=== PATIENT | female | born 1950 | race Caucasian/White ===

== ENCOUNTER 2016-05-10 08:59 | Outpatient (CLI) | payer OTHER | END 2016-05-10 09:00 | disposition home or self-care (01) | DX: G35 Multiple sclerosis (principal); R73.01 Impaired fasting glucose; E78.5 Hyperlipidemia, unspecified ==

== ENCOUNTER 2016-07-29 09:00 | Outpatient (CLI) | payer OTHER ==
--- NOTE | 2016-07-30 14:23 | Mammography Report ---
DIGITAL SCREENING MAMMOGRAM: 07/29/2016 CLINICAL INDICATION: A 65-year-old for screening. COMPARISON: 07/2014, 03/2013, 10/2011, 11/2009, 05/2007. TECHNIQUE: Routine CC and MLO projections were obtained of the breasts. FINDINGS: The breasts again demonstrate heterogeneously dense fibroglandular parenchyma bilaterally. Coarse and punctate, typically benign calcifications are present. No suspicious masses, clustered microcalcifications, or regions of architectural distortion are identified. IMPRESSION: BENIGN FINDINGS. RECOMMENDATION: Routine annual screening unless otherwise clinically indicated. BI-RADS category 2, benign findings. STANDARD QUALIFYING STATEMENTS 1. This examination was reviewed with the aid of Computer-Aided Detection (CAD). 2. A negative or benign imaging report should not delay biopsy if clinically suspicious findings are present. Consider surgical consultation if warranted. More than 5% of cancers are not identified by i maging. 3. Dense breasts may obscure an underlying neoplasm. JOB #: [id number] EXT JOB #:[id number]
== END 2016-07-29 09:01 | disposition home or self-care (01) ==
LOC: DI 09:00
PROVIDERS: ATTEND Family Medicine
DX: Z12.31 Encounter for screening mammogram for malignant neoplasm of breast (principal)
CPT/HCPCS: 77067

== ENCOUNTER 2016-09-20 12:25 | Emergency (ER) | payer MEDICARE, OTHER ==
[2016-09-20 12:35] VITALS: BP 153/64
--- NOTE | 2016-09-20 13:21 | ED Physician Documentation ---
PD HPI SKIN - Stated complaint Stated Complaint: HAND/FEET SWELLING - Chief complaint Chief Complaint: General - History obtained from History obtained from: Patient - History of Present Illness Timing - onset: How many days ago (5-6) Timing - duration: Days Timing - details: Gradual onset, Still present Location: Other (edema of hands and feet. Had been doing some crabbing so some increased activity, but does do gardening anyway so not typically inactive. No feeling of swelling to mouth, throat. No orthopnea. No dyspnea, rash, itch.) Associated symptoms: No: Fever, Myalgias, Joint pain Contributing factors: No: Exposed to food (not much salt intake), Recent illness Similar symptoms before: Has not had sx before Recently seen: Not recently seen Review of Systems Constitutional: denies: Fever, Chills Nose: denies: Rhinorrhea / runny nose, Congestion Throat: denies: Sore throat Cardiac: denies: Chest pain / pressure, Palpitations Respiratory: reports: Other (no orthopnea). denies: Dyspnea, Cough, Wheezing GI: denies: Abdominal Pain, Vomiting, Diarrhea : denies: Dysuria, Frequency Skin: denies: Rash PD PAST MEDICAL HISTORY - Past Medical History Cardiovascular: None Respiratory: None Endocrine/Autoimmune: None GI: Colon polyps : None HEENT: None Psych: None Musculoskeletal: Osteoporosis Derm: None - Past Surgical History General: Colonoscopy /[employer]: Tubal ligation - Present Medications Home Medications: Ambulatory Orders Medication Instructions Recorded Confirmed Glatiramer Acetate [Copaxone] 1 syr SUBQ DAILY 09/20/16 09/20/16 - Allergies Allergies/Adverse Reactions: Allergies Allergy/AdvReac Type Severity Reaction Status Date / Time No Known Drug Allergies Allergy Verified 09/20/16 12:35 PD ED PE NORMAL - Vitals Vital signs reviewed: Yes - General General: Alert and oriented X 3, No acute distress, Well developed/nourished - HEENT HEENT: Moist mucous membranes, Pharynx benign - Neck Neck: Supple, no meningeal sign, No adenopathy - Cardiac Cardiac: RRR, No murmur - Respiratory Respiratory: Clear bilaterally - Derm Derm: Normal color, Warm and dry - Extremities Extremities: No calf tenderness / cord, Other (mild edema in both hands and feet. No rash. No tenderness. ) - Neuro Neuro: Alert and oriented X 3, No motor deficit, No sensory deficit, Normal speech Results - Vitals Vitals: Vital Signs - 24 hr 09/20/16 12:32 Temperature 35.9 C L Heart Rate 64 Respiratory 14 Rate Blood Pressure 153/64 H O2 Saturation 100 Oxygen O2 Source Room air - Labs Labs: Laboratory Tests 09/20/16 09/20/16 09/20/16 14:27 14:27 14:27 WBC 7.1 RBC 5.00 Hgb 14.3 Hct 42.6 MCV 85.2 MCH 28.6 MCHC 33.6 RDW 13.5 Plt Count 228 MPV 6.8 L Neut # 5.3 Lymph # 1.4 L [place] # 0.3 Eos # 0.1 Baso # 0.1 Absolute Nucleated RBC 0.00 Nucleated RBCs 0.0 ESR 5 Sodium 138 Potassium 3.7 Chloride 102 Carbon Dioxide 29 Anion Gap 7.0 BUN 11 Creatinine 0.7 Estimated GFR (MDRD) 84 L Glucose 108 H Calcium 9.7 Magnesium 2.2 Total Bilirubin 0.6 AST 18 ALT 22 Alkaline Phosphatase 84 B-Natriuretic Peptide Total Protein 7.8 Albumin 4.5 Globulin 3.3 Albumin/Globulin Ratio 1.4 Lipase 23 09/20/16 14:27 WBC RBC Hgb Hct MCV MCH MCHC RDW Plt Count MPV Neut # Lymph # [place] # Eos # Baso # Absolute Nucleated RBC Nucleated RBCs ESR Sodium Potassium Chloride Carbon Dioxide Anion Gap BUN Creatinine Estimated GFR (MDRD) Glucose Calcium Magnesium Total Bilirubin AST ALT Alkaline Phosphatase B-Natriuretic Peptide 21 Total Protein Albumin Globulin Albumin/Globulin Ratio Lipase PD MEDICAL DECISION MAKING - ED course Complexity details: reviewed results, considered differential (does not seen allaegy. Labs are good with normal CBC and no renal insufficiency. She does not seem fluid overloaded. Consider related to activity or heat perhaps. Her med lists edema as side effect but she has been on it for 3 years without this, so seems unlikely. She can talk with her Neurologist (she says it is easy to talk with his nurse).), d/w patient Departure - Departure Disposition: 01 Home, Self Care Clinical Impression: Generalized edema Condition: Stable Record reviewed to determine appropriate education?: Yes Instructions: ED Edema Legs Bilateral Follow-Up: Dale Durham DO [Primary Care Provider] - Comments: Your basic blood tests are okay and it does not look like fluid overload, congestive failure, allergic reaction. It may relate to heat and activity. At this point see how you do over the next several days to a week. Follow-up with your primary care if not improved. You could call your neurologists office to ask if he thinks it may be related to the MS medication, though it would seem unusual to develop this after being on it for 3 years. Discharge Date/Time: 09/20/16 15:33
[2016-09-20 14:42] LABS: BASOPHILS # (AUTO) 0.1 10^3/uL (0.0-0.1); EOSINOPHILS # (AUTO) 0.1 10^3/uL (0.0-0.7); EOSINOPHILS % (AUTO) 2.1 %; HCT - HEMATOCRIT 42.6 % (37.0-47.0); HGB - HEMOGLOBIN 14.3 g/dL (12.0-16.0); LYMPHOCYTES # (AUTO) 1.4 10^3/uL (1.5-3.5); MEAN CORPUSCULAR HEMOGLOBIN 28.6 pg (27.0-31.0); MEAN CORPUSCULAR HGB CONC 33.6 g/dL (32.0-36.0); MEAN CORPUSCULAR VOLUME 85.2 fL (81.0-99.0); MEAN PLATELET VOLUME 6.8 fL (7.9-10.8); MONOCYTES # (AUTO) 0.3 10^3/uL (0.0-1.0); MONOCYTES % (AUTO) 4.1 %; NEUTROPHILS # (AUTO) 5.3 10^3/uL (1.5-6.6); NEUTROPHILS % (AUTO) 73.8 %; RED CELL DISTRIBUTION WIDTH 13.5 % (12.0-15.0); UNCORRECTED WHITE BLOOD COUNT 7.1 x10^3/uL; WHITE BLOOD COUNT 7.1 x10^3/uL (4.8-10.8)
[2016-09-20 14:54] LABS: ALBUMIN/GLOBULIN RATIO 1.4 (1.0-2.2); BILIRUBIN,TOTAL 0.6 mg/dL (0.2-1.0); CALCIUM 9.7 mg/dL (8.5-10.3); CREATININE 0.7 mg/dL (0.4-1.0); MAGNESIUM 2.2 mg/dL (1.7-2.8); POTASSIUM 3.7 mmol/L (3.5-5.0); TOTAL PROTEIN 7.8 g/dL (6.7-8.2)
== END 2016-09-20 15:33 | disposition home or self-care (01) ==
LOC: ED 12:25
DX: R60.1 Generalized edema (principal)
CPT/HCPCS: 36415; 80053; 83690; 83735; 83880; 85025; 85651; 99282; 99283

== ENCOUNTER 2016-09-30 07:52 | Outpatient (CLI) | payer MEDICARE ==
--- NOTE | 2016-09-30 11:29 | MRI Report ---
EXAM: MRI CERVICAL SPINE WITHOUT CONTRAST EXAM DATE: 09/30/2016 08:33 AM. CLINICAL HISTORY: MS. Follow-up. COMPARISONS: Prior MRI 04/15/2014. TECHNIQUE: Multiplanar, multisequence T1-weighted and fluid-sensitive sequences of the cervical spine without contrast. Other: None. FINDINGS: Neurologic Structures: 1. There are foci of high T2 signal at the craniocervical junction, mainly involving the right side o f the cord, unchanged since the prior study. 2. Moderately increased T2 signal in the posterior and central cord commencing at the level of the C2 -C3 disk extends to the level of the C4 vertebral body, unchanged since the prior study. 3. Central and left paracentral high T2 signal visible from the C5-C6 disk to the C7-T1 disk, unchang ed since the prior study. There is no cord atrophy. Alignment: There is a 2 mm grade 1 retrolisthesis at C5-C6. Bone Marrow: No gross fractures or bone lesions. No marrow edema. Interspace Levels/Facets: C1-C2: Unremarkable. C2-C3: The right C2-C3 facet joint is fused. There is mild right foraminal narrowing. Osteophytes con tact the right C3 nerve root within the foramen. The left C3 nerve root exits without compromise. C3-C4: There is moderate left and mild right facet joint osteoarthritis causing mild left foraminal n arrowing. C4-C5: There is moderate right and mild left facet joint osteoarthritis causing mild right foraminal narrowing. C5-C6: There is a broad-based posterior disk/osteophyte complex and mild bilateral facet joint osteoa rthritis causing mild canal narrowing and mild right foraminal narrowing. C6-C7: There is a broad-based posterior disk/osteophyte complex with mild bilateral facet joint osteo arthritis causing mild canal narrowing. There is mild bilateral foraminal narrowing. C7-T1: Unremarkable. Musculature: Normal. No edema or fatty atrophy. Other: The paravertebral and prevertebral soft tissues are normal. IMPRESSION: 1. The distribution of the high T2 foci in the visible cord has not altered since the prior study. Th e findings are consistent with MS. There is no cord atrophy. 2. Mild spondylotic change not significantly altered since the prior study. [facility] Referring Provider Line: [phone] SITE ID: [id number]
== END 2016-09-30 07:53 | disposition home or self-care (01) ==
LOC: DI 07:52
PROVIDERS: ATTEND Psychiatry & Neurology Neurology
DX: G35 Multiple sclerosis (principal)
CPT/HCPCS: 72141

== ENCOUNTER 2016-10-04 08:50 | Outpatient (CLI) | payer MEDICARE ==
[2016-10-04] MEDS ORDERED: GADOBUTROL 7.5 MMOL/7.5 ML VIAL IVP ONE (09:13)
--- NOTE | 2016-10-04 14:50 | MRI Report ---
MRI BRAIN WITHOUT AND WITH CONTRAST CLINICAL HISTORY: 65-year-old female with multiple sclerosis. Please assess for interval change in le maurilio load. COMPARISON: 04/03/2014 TECHNIQUE: 1. Sagittal T1 3-D and T2 FLAIR. 2. Axial T1, FLAIR, T2 and DWI. 3. 6 mL of IV Gadavist. T1-weighted axial sequences. FINDINGS: Ventricular size is normal and stable. Multiple, T2 hyperintense/T1 hypointense lesions are again demonstrated, scattered throughout the per iventricular, deep, and subcortical white matter in the supratentorial brain. There is a tiny T2 hype rintense focus in white matter at left temporoparietal junction (see image #5 of series 701) that is not identified on the previous study and appears to represent a new finding. It measures about a mill imeter in diameter. No other new T2 hyperintense supratentorial white matter focus is demonstrated. A small T2 hyperintensity is again demonstrated in the mid body of the corpus callosum on the right, u nchanged. No new corpus callosal pathology is identified. Subtle focus of mildly increased T2 signal again demonstrated in deep white matter left cerebellum. I n addition, there is a small focus of hyperintensity in white matter of the upper, anterior, and diane al right cerebellum, stable. No new posterior fossa lesion is identified. The burden of T1 hypointense white matter disease is essentially stable. No abnormal diffusion restriction is demonstrated. No enhancing lesion is identified on postcontrast sequences. Limited assessment of the orbits reveals no gross pathology. The paranasal sinuses are essentially cl ear. No significant mastoid or middle ear effusion is demonstrated. IMPRESSION: 1. A tiny (roughly 1 mm diameter) T2 hyperintense focus is identified in the white matter at the left temporoparietal junction. No definite corresponding abnormality is seen on the prior study suggestin g that this probably represents a new white matter lesion. However, the lesion is so small that nonid entification on previous study could simply relate to slice selection. 2. Otherwise, stable appearance of previously demonstrated multifocal white matter disease. No other potential new demyelinating plaque is identified. 3. No enhancing lesion is demonstrated. Referring Provider Line: [phone] SITE ID: [id number]
== END 2016-10-04 08:51 | disposition home or self-care (01) ==
LOC: DI 08:50
PROVIDERS: ATTEND Psychiatry & Neurology Neurology
DX: G35 Multiple sclerosis (principal); R90.82 White matter disease, unspecified
CPT/HCPCS: 70553; A9585

== ENCOUNTER 2017-10-12 07:40 | Outpatient (CLI) | payer MEDICARE ==
[2017-10-12] MEDS ORDERED: GADOBUTROL 7.5 MMOL/7.5 ML VIAL ONE (08:23)
[2017-10-12] MEDS: GADOBUTROL 7.5 MMOL/7.5 ML VIAL IVP ONE (09:04)
[2017-10-12 09:54] LABS: BASOPHILS # (AUTO) 0.1 10^3/uL (0.0-0.1); BASOPHILS % (AUTO) 1.1 %; EOSINOPHILS # (AUTO) 0.1 10^3/uL (0.0-0.7); EOSINOPHILS % (AUTO) 1.9 %; HGB - HEMOGLOBIN 14.6 g/dL (12.0-16.0); LYMPHOCYTES # (AUTO) 1.2 10^3/uL (1.5-3.5); LYMPHOCYTES % (AUTO) 20.6 %; MEAN CORPUSCULAR HEMOGLOBIN 28.8 pg (27.0-31.0); MEAN CORPUSCULAR HGB CONC 33.8 g/dL (32.0-36.0); MEAN CORPUSCULAR VOLUME 85.2 fL (81.0-99.0); MEAN PLATELET VOLUME 6.8 fL (7.9-10.8); MONOCYTES # (AUTO) 0.3 10^3/uL (0.0-1.0); MONOCYTES % (AUTO) 4.3 %; NEUTROPHILS # (AUTO) 4.3 10^3/uL (1.5-6.6); NEUTROPHILS % (AUTO) 72.1 %; PLT - PLATELET COUNT 231 10^3/uL (130-450); RED BLOOD COUNT 5.08 10^6/uL (4.20-5.40); RED CELL DISTRIBUTION WIDTH 13.5 % (12.0-15.0)
[2017-10-12 10:08] LABS: ALBUMIN 4.6 g/dL (3.2-5.5); ALBUMIN/GLOBULIN RATIO 1.5 (1.0-2.2); CALCIUM 9.5 mg/dL (8.5-10.3); CREATININE 0.6 mg/dL (0.4-1.0); TOTAL PROTEIN 7.7 g/dL (6.7-8.2)
[2017-10-12 10:47] LABS: THYROID STIMULATING HORMONE 0.96 uIU/mL (0.34-5.60)
--- NOTE | 2017-10-12 13:25 | MRI Report ---
Procedure Date: 10/12/2017 Accession Number: [id number] / [id number] Procedure: MRI - Cervical Spine W/O CPT Code: FULL RESULT: EXAM: MRI CERVICAL SPINE WITHOUT CONTRAST EXAM DATE: 10/12/2017 08:35 AM. CLINICAL HISTORY: Multiple sclerosis follow-up. COMPARISONS: Cervical spine without 09/30/2016 8:06 AM. TECHNIQUE: Multiplanar, multisequence T1-weighted and fluid-sensitive sequences of the cervical spine without contrast. Other: None. FINDINGS: Neurologic Structures: Stable appearing abnormal patchy and nodular T2 hyperintensity of the inferior medulla and the cervical medullary junction. Again seen are multiple regions of nodular, patchy and confluent multilevel abnormal T2 hyperintensity throughout the cervical spinal cord in a pattern consistent with the given diagnosis of multiple sclerosis. There is no evidence for cervical spinal cord interval lesion burden progression. Dominant regions of T2 hyperintensity are again seen in the cervical cord at C1-C2, from the mid C3 level inferiorly to the top of C4 and from the C5-C6 level inferiorly to the upper T1 level. No evidence for acute focal cord swelling/expansion or edema. Alignment: No change of alignment. Bone Marrow: There is now prominent marrow edema on both sides of the arthritic disk space at C6-C7. These progressive findings are likely degenerative. Infection and tumor are less likely. Mild or prominent degenerative endplate signal changes also on the right at C5-C6. Interspace Levels/Facets: C1-C2: Stable, no stenosis. C2-C3: Stable, no stenosis. C3-C4: Stable facet arthropathy on the left. Stable mild left foraminal narrowing. C4-C5: Stable degenerative changes including prominent facet arthropathy on the right and very small midline posterior disk protrusion. No evidence for high-grade or progressive stenosis. C5-C6: Mildly progressive degenerative disk disease. Stable mild facet arthropathy. Patent central canal and left foramen. Stable appearing moderately prominent degenerative foraminal stenosis on the right from intraforaminal asymmetric disk osteophyte complex protrusion and facet arthropathy. C6-C7: Progressive degenerative disk disease. Marginal spurring and broad-based disk bulge. Minimal central stenosis, no cord impingement. Stable minimal foraminal narrowing. C7-T1: Unremarkable. T1-T2: Stable small midline posterior disk extrusion, no cord impingement. Musculature: No acute abnormality. Other: Stable probably incidental left intraforaminal perineural root sleeve cyst on the left at T1-T2. IMPRESSION: 1. Extensive but stable abnormal T2 hyperintensity in the lower brainstem and cervical spinal cord consistent with nonprogressive demyelinating disease. 2. Progressive degenerative disk disease at the C6-C7 level and to a lesser degree on the right at C5-C6. 3. No evidence for significant progression of degenerative cervical stenosis. [facility]
--- NOTE | 2017-10-12 15:05 | MRI Report ---
Procedure Date: 10/12/2017 Accession Number: [id number] / [id number] Procedure: MRI - Brain W/WO CPT Code: FULL RESULT: EXAM: MRI BRAIN WITHOUT AND WITH CONTRAST EXAM DATE: 10/12/2017 09:21 AM. CLINICAL HISTORY: Multiple sclerosis, follow-up. COMPARISON: Brain with and without 10/04/2016 9:00 AM. TECHNIQUE: Multiplanar, multisequence T1-weighted and fluid-sensitive MR sequences of the brain were performed. Sequences optimized for White matter evaluation. Other: None. IV Contrast: 6 mL Gadavist. FINDINGS: Brain Volume: Stable, within normal limits for age. Parenchyma: No acute infarct, hemorrhage or evidence for developing enhancing intracranial tumor mass. Again seen are multiple foci of patchy, nodular and plaque-like T2 hyperintensities in both cerebral hemispheres involving deep and periventricular white matter. Less prominent T2 hyperintense signal changes in the cerebellar hemispheres. Compared to the prior study there is no evidence for interval T1 hypointense/T2 hyperintense lesion burden progression. No white matter enhancement is seen to suggest disease activity. Ventricles/Cisterns: No hydrocephalus. No abnormal extra-axial fluid collection or hemorrhage. Sella Turcica: The pituitary gland, cavernous sinuses, suprasellar cistern and optic chiasm are unremarkable. IAC: Symmetric and unremarkable. Vasculature: Normal signal flow void is seen in the major arterial structures at the skull base. The dural sinuses are patent and enhance normally. Sinuses: No acute sinus disease. IMPRESSION: 1. Stable white matter disease consistent with the given diagnosis of MS, no evidence for interval lesion burden progression. 2. No abnormal white matter enhancement. [facility]
== END 2017-10-12 07:41 | disposition home or self-care (01) ==
LOC: DI 07:40
PROVIDERS: ATTEND Psychiatry & Neurology Neurology
DX: G35 Multiple sclerosis (principal); M50.222 Other cervical disc displacement at C5-C6 level; M47.892 Other spondylosis, cervical region; M50.322 Other cervical disc degeneration at C5-C6 level
CPT/HCPCS: 36415; 70553; 72141; 80053; 81599; 82306; 82607; 84443; 85025; A9585

== ENCOUNTER 2018-07-20 08:11 | Outpatient (CLI) | payer MEDICARE ==
--- NOTE | 2018-07-20 09:40 | Mammography Report ---
Reason: SCREENING MAMMO Procedure Date: 07/20/2018 Accession Number: [id number] / [id number] Procedure: MARK - Screening Mammo w/Neto CPT Code: FULL RESULT: EXAM: Screening Mammo w/Neto DATE: 07/20/2018 8:45 AM CLINICAL HISTORY: Screening encounter. No reported risk factors. TECHNIQUE: (B) - Bilateral CC and MLO views were obtained. A right laterally exaggerated view is obtained. COMPARISON: 07/29/2016 through 11/22/2011. PARENCHYMAL PATTERN: (A) - The breast(s) demonstrate(s) scattered fibroglandular densities. FINDINGS: There are no suspicious masses, calcifications, or areas of distortion. IMPRESSION: Negative examination. BI-RADS category 1. RECOMMENDATION: (ANNUAL) - Recommend routine annual screening mammography. BI-RADS CATEGORY: (1) - Negative. STANDARD QUALIFYING STATEMENTS: 1. This examination was not reviewed with the aid of Computer-Aided Detection (CAD). 2. A negative or benign imaging report should not preclude biopsy if clinically suspicious findings are present. 3. Dense breasts may obscure an underlying neoplasm. 4. This examination was reviewed with the aid of 3D breast imaging (tomosynthesis).
== END 2018-07-20 08:12 | disposition home or self-care (01) ==
LOC: DI 08:11
DX: Z12.31 Encounter for screening mammogram for malignant neoplasm of breast (principal)
CPT/HCPCS: 77063; 77067

== ENCOUNTER 2018-12-02 09:00 | Outpatient (CLI) | payer MEDICARE | END 2018-12-02 09:01 | disposition home or self-care (01) | LOC: DI 09:00 | PROVIDERS: ATTEND Psychiatry & Neurology Neurology | DX: G35 Multiple sclerosis (principal); Z53.9 Procedure and treatment not carried out, unspecified reason ==

== ENCOUNTER 2018-12-13 07:41 | Outpatient (CLI) | payer MEDICARE ==
[2018-12-13 08:23] LABS: CREATININE 0.8 mg/dL (0.4-1.0)
== END 2018-12-13 07:42 | disposition home or self-care (01) ==
LOC: LAB 07:41
PROVIDERS: ATTEND Psychiatry & Neurology Neurology
DX: G35 Multiple sclerosis (principal)
CPT/HCPCS: 36415; 82565

== ENCOUNTER 2018-12-16 07:19 | Outpatient (CLI) | payer MEDICARE ==
[2018-12-16] MEDS ORDERED: GADOBUTROL 7.5 MMOL/7.5 ML VIAL ONE (08:34)
[2018-12-16] MEDS ORDERED: GADOBUTROL 7.5 MMOL/7.5 ML VIAL IVP ONE (09:10)
--- NOTE | 2018-12-16 13:45 | MRI Report ---
Reason: MULTIPLE SCLEROSIS Procedure Date: 12/16/2018 Accession Number: [id number] / [id number] Procedure: MRI - Cervical Spine W/O CPT Code: FULL RESULT: EXAM: MRI CERVICAL SPINE WITHOUT CONTRAST EXAM DATE: 12/16/2018 07:54 AM. CLINICAL HISTORY: 68-year-old with history of multiple sclerosis. Evaluate for cervical pathology or interval change. COMPARISONS: CERVICAL SPINE W/O 10/12/2017 8:05 AM. TECHNIQUE: Multiplanar, multisequence T1-weighted and fluid-sensitive sequences of the cervical spine without contrast. Other: None. FINDINGS: Neurologic Structures: There are T2 hyperintense lesions seen within the cervical cord includin. Right dorsolateral cord at C1-C2 measuring up to 5 mm (series 701, image 26) stable. 2. Right dorsolateral cord at C2-C3 measuring up to 3 mm (series 701, image 23) stable. 3. Right dorsal paramedian cord at C3-C4 measuring up to 3 mm (series 701, image 19) stable. 4. Left dorsolateral cord at C5-C6 measuring up to 2 mm (series 701, image 12) stable. 5. Left dorsolateral cord at C6 measuring up to 4 mm (series 701, image 10) stable. 6. Midline dorsal cord at C7 measuring up to 3 mm (series 701, image 6) stable. No definite new or enlarging T2 hyperintense lesions seen. Lack of contrast administration technically limits evaluation for active demyelination. Alignment: No scoliosis or spondylolisthesis. Bone Marrow: No gross fractures or bone lesions. No marrow edema. Interspace Levels/Facets: Mild endplate degenerative change with mild loss of disk height and disk desiccation. Scattered Schmorl's nodes seen. C1-C2: Arthritic changes seen between the dens and anterior arch of C1. C2-C3: Small central disk osteophyte complex. Right arthritic facet disease. No spinal canal stenosis. No definite neural foraminal narrowing. C3-C4: Small central disk osteophyte complex. Bilateral uncovertebral and arthritic facet disease, greater on the left. Mild spinal canal stenosis. Moderate left neural foraminal narrowing. C4-C5: Small broad-based disk osteophyte complex. Bilateral uncovertebral osteophyte and arthritic facet disease. Mild spinal canal stenosis. Mild right and mild to moderate left neural foraminal narrowing. C5-C6: Small broad-based disk osteophyte complex eccentric to the right. Bilateral uncovertebral osteophyte and arthritic facet disease, greater on the right. Mild spinal canal stenosis and effacement of the right lateral recess. Severe right and mild left neural foraminal narrowing. C6-C7: Small broad-based disk osteophyte complex. Bilateral uncovertebral osteophyte and arthritic facet disease. Mild spinal canal stenosis. Mild bilateral neural foraminal narrowing. C7-T1: Bilateral arthritic facet disease. No definite spinal canal stenosis. No definite neural foraminal narrowing. Incidentally seen within the left T1-T2 neural foramina is a moderate sized left neural foraminal perineural root sleeve cyst. Musculature: Mild fatty atrophy of the posterior spinal musculature. Other: The paravertebral and prevertebral soft tissues are normal. IMPRESSION: 1. There are T2 hyperintense lesions seen throughout the cervical cord that appear similar in size and distribution to MR cervical spine 10/12/2018 and can be compatible with patient's history of demyelinating disease. When accounting for differences in technique there is no definite new or enlarging T2 hyperintense lesion seen. Lack of contrast administration technically limits evaluation for active demyelination. 2. Multilevel degenerative changes that appear similar to MR cervical spine 09/30/2016, as detailed above. [facility]
--- NOTE | 2018-12-16 14:13 | MRI Report ---
Reason: MULTIPLE SCLEROSIS Procedure Date: 12/16/2018 Accession Number: [id number] / [id number] Procedure: MRI - Brain W/WO CPT Code: FULL RESULT: EXAM: MRI BRAIN WITHOUT AND WITH CONTRAST EXAM DATE: 12/16/2018 09:07 AM. CLINICAL HISTORY: 68-year-old with history of multiple sclerosis. Evaluate for intracranial pathology or interval change. COMPARISON: BRAIN W/WO 10/12/2017 8:37 AM. TECHNIQUE: Multiplanar, multisequence T1-weighted and fluid-sensitive MR sequences of the brain were performed before and after administration of intravenous contrast. Sequences optimized for demyelinating disease evaluation. Other: None. IV Contrast: 6 mL Gadavist. FINDINGS: Brain Volume: Normal for age. Parenchyma: No acute parenchymal hemorrhage, mass, or midline shift seen. There is mild to moderate bilateral areas of juxtacortical, subcortical, and periventricular T2/FLAIR signal hyperintensity seen that appears similar in size and distribution to MR brain 10/12/2018. There are T2 hypointense lesion seen involving the corpus callosum, brainstem, and cerebellum that appears similar to prior study. Compared to MR brain there is no definite new or enlarging T2 hypointense lesion seen. No areas of restricted diffusion seen to just acute infarct. No abnormal areas of parenchymal susceptibility artifact. No abnormal enhancement. Ventricles/Cisterns: No hydrocephalus. No abnormal extra-axial fluid collection or hemorrhage. Orbits: Symmetric and unremarkable. Sella Turcica: The pituitary gland, cavernous sinuses, suprasellar cistern and optic chiasm are unremarkable. IAC: Symmetric and unremarkable. Vasculature: Normal signal flow void is seen in the major arterial structures at the skull base. The dural sinuses are patent and enhance normally. Sinuses: No acute sinus disease. Bones: No focal pathologic appearing marrow signal changes. Other: None. IMPRESSION: 1. Mild to moderate white matter changes seen that are similar in size and distribution to MR brain 10/12/2017 and can be compatible with patient's history of demyelinating disease. Compared to prior study there is no definite new or enlarging T2 hyperintense lesion seen. No abnormal postcontrast enhancement seen to suggest active demyelinating demyelination. 2. No acute infarct, acute intracranial hemorrhage, mass, hydrocephalus, or midline shift. No abnormal postcontrast enhancement. [facility]
== END 2018-12-16 07:20 | disposition home or self-care (01) ==
LOC: DI 07:19
PROVIDERS: ATTEND Psychiatry & Neurology Neurology
DX: G35 Multiple sclerosis (principal); M47.813 Spondylosis without myelopathy or radiculopathy, cervicothoracic region
CPT/HCPCS: 70553; 72141; A9585

== ENCOUNTER 2020-12-25 08:09 | Outpatient (CLI) | payer MEDICARE ==
--- NOTE | 2020-12-26 09:12 | Mammography Report ---
BILATERAL DIGITAL SCREENING MAMMOGRAM 3D/2D: 12/25/2020 CLINICAL: Routine screening. Comparison is made to exams dated: 07/20/2018 mammogram, 07/29/2016 mammogram, 08/13/2014 mammogram, and 04/23/2013 mammogram - [facility]. The tissue of both breasts is heterogeneously d ense. This may lower the sensitivity of mammography. No significant masses, calcifications, or other findings are seen in either breast. There has been no significant interval change. IMPRESSION: NEGATIVE There is no mammographic evidence of malignancy. A 1 year screening mammogram is recommended. This exam was interpreted at Station ID: [id number]. NOTE: For mammograms, a report in lay terms will be sent to the patient. Approximately 15% of breast malignancies will not be visualized mammographically. In the management of a palpable breast mass, a negative mammogram must not discourage biopsy of a clinically suspicious lesion. Electronically Signed By: Berry Cornelius M.D. slc/penrad:12/25/2020 09:53:26 ACR BI-RADS Category 1: Negative 3341F PARENCHYMAL PATTERN: (D) - The breast(s) demonstrate(s) heterogeneously dense fibroglandular chet randall. BI-RADS CATEGORY: (1) - 1 RECOMMENDATION: (ANNUAL) - Recommend routine annual screening mammography. [id number] 1 year screening LATERALITY: (B)
== END 2020-12-25 08:10 | disposition home or self-care (01) ==
LOC: DI 08:09
DX: Z12.31 Encounter for screening mammogram for malignant neoplasm of breast (principal)

== ENCOUNTER 2021-03-21 08:04 | Outpatient (CLI) | payer MEDICARE ==
[2021-03-21 08:31] LABS: BASOPHILS # (AUTO) 0.1 10^3/uL (0.0-0.1); BASOPHILS % (AUTO) 1.3 %; EOSINOPHILS # (AUTO) 0.1 10^3/uL (0.0-0.7); EOSINOPHILS % (AUTO) 2.4 %; HCT - HEMATOCRIT 40.4 % (37.0-47.0); HGB - HEMOGLOBIN 13.4 g/dL (12.0-16.0); LYMPHOCYTES # (AUTO) 1.2 10^3/uL (1.5-3.5); LYMPHOCYTES % (AUTO) 26.3 %; MEAN CORPUSCULAR HEMOGLOBIN 28.7 pg (27.0-31.0); MEAN CORPUSCULAR HGB CONC 33.2 g/dL (32.0-36.0); MEAN CORPUSCULAR VOLUME 86.5 fL (81.0-99.0); MEAN PLATELET VOLUME 8.6 fL (7.9-10.8); MONOCYTES # (AUTO) 0.3 10^3/uL (0.0-1.0); MONOCYTES % (AUTO) 6.4 %; NEUTROPHILS % (AUTO) 63.6 %; PLT - PLATELET COUNT 220 10^3/uL (130-450); RED BLOOD COUNT 4.67 10^6/uL (4.20-5.40); RED CELL DISTRIBUTION WIDTH 13.2 % (12.0-15.0); WHITE BLOOD COUNT 4.7 x10^3/uL (4.8-10.8)
[2021-03-21 08:51] LABS: BILIRUBIN,URINE NEGATIVE (NEGATIVE); GLUCOSE, URINE (UA) NEGATIVE (NEGATIVE); KETONES,URINE (UA) NEGATIVE (NEGATIVE); LEUKOCYTE ESTERASE, URINE TRACE (NEGATIVE); NITRITE,URINE NEGATIVE (NEGATIVE); OCCULT BLOOD,URINE NEGATIVE (NEGATIVE); PH,URINE 7.5 PH (5.0-7.5); PROTEIN,URINE NEGATIVE (NEGATIVE); UROBILINOGEN,URINE 0.2 (NORMAL) E.U./dL (NORMAL)
[2021-03-21 08:52] LABS: CLARITY,URINE CLEAR (CLEAR)
[2021-03-21 08:54] LABS: ALBUMIN 4.2 g/dL (3.2-5.5); ALBUMIN/GLOBULIN RATIO 1.7 (1.0-2.2); ALKALINE PHOSPHATASE 73 IU/L (42-121); ALT ALANINE AMINOTRANSFERASE 15 IU/L (10-60); AST ASPARTATE AMINOTRANSFERASE 17 IU/L (10-42); BILIRUBIN,TOTAL 0.9 mg/dL (0.2-1.0); BUN - BLOOD UREA NITROGEN 12 mg/dL (6-20); CALCIUM 9.2 mg/dL (8.5-10.3); CARBON DIOXIDE - CO2 26 mmol/L (21-32); CHLORIDE 97 mmol/L (101-111); CHOL/HDL RATIO 3.2 (<4.4); CHOLESTEROL 253 mg/dL; CREATININE 0.8 mg/dL (0.4-1.0); GFR - MDRD 71 (>89); GLUCOSE 112 mg/dL (70-100); HDL CHOLESTEROL 79 mg/dL; LDL CHOLESTEROL,CALCULATED 160 mg/dL; SODIUM 131 mmol/L (135-145); TOTAL PROTEIN 6.7 g/dL (6.7-8.2); TRIGLYCERIDES 72 mg/dL; VLDL CHOLESTEROL 14 mg/dL
[2021-03-21 08:57] LABS: BACTERIA,URINE Few /HPF (None Seen); RBC,URINE 0-5 /HPF (0-5); SQUAMOUS EPITHELIAL CELL,UR FEW Squamous (<= Few); WBC,URINE 0-3 /HPF (0-5)
[2021-03-21 09:06] LABS: THYROID STIMULATING HORMONE 1.19 uIU/mL (0.34-5.60)
[2021-03-21 09:08] LABS: FREE T4 (FREE THYROXINE) 0.98 ng/dL (0.58-1.64)
[2021-03-21 09:13] LABS: CREATININE,URINE 60.6 mg/dL; MICROALBUM/CREATININE RATIO,UR 19.8 ug/mg (<30.0); MICROALBUMIN,URINE 1.2 mg/dL (0-300.0)
[2021-03-21 11:51] LABS: ESTIMATED AVERAGE GLUCOSE 111 mg/dL (70-100); HEMOGLOBIN A1c% 5.5 % (4.27-6.07)
== END 2021-03-21 08:05 | disposition home or self-care (01) ==
LOC: LAB 08:04
PROVIDERS: ATTEND Nurse Practitioner
DX: R53.83 Other fatigue (principal); E78.5 Hyperlipidemia, unspecified; G35 Multiple sclerosis; Z13.1 Encounter for screening for diabetes mellitus
CPT/HCPCS: 36415; 80053; 80061; 81001; 82043; 82570; 82607; 83036; 83721; 84439; 84443; 85025; 87086

== ENCOUNTER 2021-06-25 09:50 | Outpatient (CLI) | payer MEDICARE ==
[2021-06-25 10:22] LABS: CREATININE 0.7 mg/dL (0.4-1.0)
== END 2021-06-25 09:51 | disposition home or self-care (01) ==
LOC: LAB 09:50
PROVIDERS: ATTEND Psychiatry & Neurology Neurology
DX: G35 Multiple sclerosis (principal)
CPT/HCPCS: 36415; 82565

== ENCOUNTER 2021-07-02 10:01 | Outpatient (CLI) | payer MEDICARE ==
[2021-07-02] MEDS ORDERED: GADOBUTROL 7.5 MMOL/7.5 ML VIAL ONE (10:07)
--- NOTE | 2021-07-02 16:23 | MRI Report ---
PROCEDURE: Cervical Spine W/WO INDICATIONS: MULTIPLE SCLEROSIS CONTRAST: IV CONTRAST: Gadavist ml: 5.2 TECHNIQUE: Noncontrast sagittal T1 spin echo and T2 fast spin echo, sagittal STIR, sagittal PD fast spin echo, f oraminal oblique sagittal T2 fast spin echo, axial gradient echo or T2 fast spin echo through the cer vical spine. After the administration of contrast, sagittal and axial T1 spin echo with fat saturati on through the cervical spine. COMPARISON: 12/16/2018, 10/12/2017 and 09/30/2016. FINDINGS: Image quality: Degraded by patient motion artifact. Alignment and curvature: There is normal bony alignment. Marrow: Marrow demonstrates normal overall signal. Spinal cord: Visualized spinal cord is normal in size.Multiple foci of increased T2 signal noted in the cervical spine at the level of the C2, C3, C5-6 and C7 vertebral bodies compatible reported histo ry of multiple sclerosis. Multiple sclerosis plaques are unchanged in size and contour compared to e 12/16/2018, 10/12/2017 and 09/30/2016. No new multiple sclerosis plaques identified. No suspicious int ramedullary enhancement. No cerebellar tonsillar herniation. Paraspinous soft tissues: No paravertebral masses or suspicious enhancement. Multilevel degenerative disc changes are redemonstrated. Multilevel facet and uncovertebral arthropat hy are redemonstrated. No severe central canal narrowing. Severe right C5-C6 neural foraminal narrowi ng with compression of the exiting right C6 nerve root. IMPRESSION: 1. Multiple foci of increased T2 signal involving the cervical spinal cord compatible with reported h istory of multiple sclerosis. Multiple sclerosis plaques are stable in size, contour and number jose a red to prior examination. 2. No suspicious postcontrast enhancement. 3. Multilevel degenerative disc disease. 4. Multilevel facet and uncovertebral arthropathy. 5. No severe central canal narrowing. 6. Severe right C5-C6 neural foraminal narrowing with compression of the exiting right C6 nerve root. Reviewed by: Indigo Pimentel MD, PhD on 07/02/2021 4:22 PM PDT Approved by: Indigo Pimentel MD, PhD on 07/02/2021 4:22 PM PDT Station ID: [id number]
--- NOTE | 2021-07-02 18:24 | MRI Report ---
PROCEDURE: Brain W/WO INDICATIONS: MULTIPLE SCLEROSIS CONTRAST: IV CONTRAST: Gadavist ml: 5.2 TECHNIQUE: Noncontrast axial T1 spin echo, axial T2 fast spin echo, sagittal and axial FLAIR, coronal T2 fast sp in echo, axial gradient echo, axial diffusion and ADC through the brain. After the administration of contrast, axial and coronal T1 spin echo with fat saturation through the brain. COMPARISON: MRI brain 12/16/2018 FINDINGS: Image quality: Excellent. CSF spaces: Basal cisterns are patent. No extra-axial fluid collections. Ventricles are normal in size and shape. Brain: No midline shift. No intracranial bleeds or masses. No abnormal intracranial enhancement. There is cerebral volume loss for age. There is periventricular white matter chronic small vessel is chemic change. The brainstem appears normal. Diffusion-weighted images demonstrate no acute ischemi c insults. No chronic ischemic insults. Normal intravascular flow voids are present. As identified on prior exam, periventricular and subcortical white matter hyperintensities are present. They are s table in size and number compared to prior exam. Skull and face: Calvarial marrow is normal in signal. Orbits appear normal. Sinuses: Sinuses and mastoids appear clear. IMPRESSION: Stable appearance of multifocal T2/FLAIR hyperintensities within the periventricular and subcortical white matter. Overall appearance remains consistent with demyelinating disease without interval progr ession. Reviewed by: Li Duarte MD on 07/02/2021 5:23 PM THUY Approved by: Li Duarte MD on 07/02/2021 5:23 PM AKALIA Station ID: [id number]
[2021-07-06] MEDS ORDERED: GADOBUTROL 7.5 MMOL/7.5 ML VIAL IVP ONE (08:44)
== END 2021-07-02 10:02 | disposition home or self-care (01) ==
LOC: DI 10:01
PROVIDERS: ATTEND Psychiatry & Neurology Neurology
DX: G35 Multiple sclerosis (principal); M47.812 Spondylosis without myelopathy or radiculopathy, cervical region; M50.30 Other cervical disc degeneration, unspecified cervical region; M48.02 Spinal stenosis, cervical region
CPT/HCPCS: 70553; 72156; A9585

== ENCOUNTER 2021-08-27 08:00 | Outpatient (CLI) | payer MEDICARE ==
--- NOTE | 2021-08-27 12:39 | XRAY Report ---
PROCEDURE: Wrist 3 View LT INDICATIONS: WRIST FX TECHNIQUE: 3 views of the wrist were acquired. COMPARISON: None FINDINGS: Bones: There is a fracture of the distal radius with dorsal angulation and articular surface involvem ent which demonstrates unchanged alignment compared to the prior x-ray. No suspicious bony lesions. Soft tissues: No suspicious soft tissue calcifications. IMPRESSION: Fracture of the distal radius with dorsal angulation and articular surface involvement i n plaster with unchanged alignment. Reviewed by: Babar Moise on 08/27/2021 12:38 PM PDT Approved by: Babar Moise on 08/27/2021 12:38 PM PDT Station ID: [id number]
== END 2021-08-27 23:59 | disposition home or self-care (01) ==
LOC: DI.WOS 08:00
PROVIDERS: ATTEND Orthopaedic Surgery
DX: S52.502D Unspecified fracture of the lower end of left radius, subsequent encounter for closed fracture with routine healing (principal)

== ENCOUNTER 2021-08-28 06:27 | Day surgery (SDC) | payer MEDICARE ==
[2021-08-28] MEDS ORDERED: CELECOXIB 100 MG CAPSULE PO ONE (06:36)
[2021-08-28] MEDS ORDERED: CEFAZOLIN SODIUM IN 0.9 % NACL 2 GM/50 ML BAG IV ONE (06:37)
[2021-08-28] MEDS ORDERED: ACETAMINOPHEN 1,000 MG/100 ML 100 ML IV ONE (06:38)
[2021-08-28] MEDS ORDERED: LACTATED RINGERS 1,000 ML IV ONE ×2 (06:55→08:40)
--- NOTE | 2021-08-28 07:06 | ANESTHESIA ---
Pre-Anesthesia VS, & Labs - Diagnosis Distal radius intra-articular fracture, left wrist - Procedure Closed reduction, Percutaneous Pinning Vital Signs: Temp Pulse Resp BP Pulse Ox 37.1 C 74 16 131/89 H 97 08/28/21 06:48 08/28/21 06:48 08/28/21 06:48 08/28/21 06:48 08/28/21 06:48 Height: 5 ft 4.5 in Weight (kg): 51 kg Body Mass Index: 19.0 BMI Classification: Healthy weight - NPO >8 hours - Is Patient ?: No - Lab Results Current Lab Results: Laboratory Tests 08/28/21 06:49: POC Whole Bld Glucose 129 H Home Medications and Allergies Home Medications: Ambulatory Orders Latanoprost 0.005% Ophth Drops [Xalatan Ophth Drops] 08/27/21 Methylphenidate [Ritalin] 5 mg PO DAILY 08/27/21 Timolol 0.25% Ophth Drops [Timoptic 0.25% Ophth Drops] 1 drops OPTH DAILY 08/27/21 Latanoprost 0.005% Ophth Drops [Xalatan Ophth Drops] 08/27/21 Methylphenidate [Ritalin] 5 mg PO DAILY 08/27/21 Timolol 0.25% Ophth Drops [Timoptic 0.25% Ophth Drops] 1 drops OPTH DAILY 08/27/21 Allergies/Adverse Reactions: Allergies Allergy/AdvReac Type Severity Reaction Status Date / Time No Known Drug Allergies Allergy Verified 08/20/21 18:12 Anes History & Medical History - Anesthetic History Anesthesia Complications: reports: No previous complications Family history of Anesthesia Complications: Denies Family history of Malignant Hyperthermia: Denies - Medical History Cardiovascular: reports: None Pulmonary: reports: None Gastrointestinal: reports: Colon polyps Urinary: reports: None Neuro: reports: Multiple sclerosis (Dx in 2014) Musculoskeletal: reports: Osteoporosis Endocrine/Autoimmune: reports: None Skin: reports: None Smoking Status: Former smoker (smoked 43 years ago) Psychosocial: reports: Alcohol History of Cancer?: No - Surgical History General: reports: Colonoscopy Eyes Ears Nose Throat (EENT): reports: Other (glaucoma) Gynecologic: reports: Tubal ligation Exam General: Alert, Oriented x3 Dental: WNL Mouth Openin Fingerbreadth Mallampati classification: I Thyromental Distance: 4-6 cm Respiratory: Lungs clear Cardiovascular: Regular rate, No murmurs Mental/Cognitive Status: Normal for patient Cognitive Status: Within normal limits Plan Anesthesia Type: MAC, Supraclavicular Block Regional Block: Per Surgeon's request for Post Op pain control Consent for Procedure(s) Verified and Reviewed: Yes Code Status: Attempt Resuscitation ASA classification: 2-Mild systemic disease Is this case an emergency?: No
[2021-08-28] MEDS ORDERED: MIDAZOLAM 2 MG/2 ML VIAL ONE (07:27)
[2021-08-28] MEDS ORDERED: ROPIVACAINE 0.2% PF 10 ML VIAL ONE (07:29)
[2021-08-28] MEDS ORDERED: DEXAMETHASONE 4 MG/ML VIAL ONE (07:32)
[2021-08-28] MEDS ORDERED: PROPOFOL 500 MG/50 ML 500 MG/50 ML VIAL ONE (07:34)
[2021-08-28] MEDS ORDERED: LIDOCAINE 1% 50 ML MDV ONE (07:38)
[2021-08-28] MEDS ORDERED: fentaNYL 100 MCG/2 ML VIAL ONE (07:44)
[2021-08-28] MEDS ORDERED: KETAMINE 500 MG/10 ML VIAL ONE (08:18)
[2021-08-28] MEDS ORDERED: ONDANSETRON 4 MG/2 ML VIAL IVP STA (08:41)
[2021-08-28] MEDS ORDERED: oxyCODONE 5 MG TABLET PO PRN (08:41)
--- NOTE | 2021-08-28 08:42 | OPERATIVE REPORT ---
Operative Report - General Procedure Date: 08/28/21 Planned Procedure: Closed reduction, percutaneous pinning left distal radius fracture Pre-Op Diagnosis: Displaced extra-articular and intra-articular left distal radius fracture, Procedure Performed: Closed reduction left distal radius fracture, percutaneous multiple K wire fixation left distal radius Post Op Diagnosis: Same as preoperative diagnosis - Procedure Note Primary Surgeon: Man Guerrero MD Secondary Surgeon: Elyse Sim PAC Anesthesia Technique: Regional block Estimated Blood Loss (mL): 1 Indications: This is a relatively active 70-year-old with a fall from standing height about a week ago. She sustained a displaced fracture left distal radius, had attempted closed reduction in the emergency room and application of a sugar-tong splint. She has multiple sclerosis and some decreased strength to her dominant right hand. Her examination showed mild swelling and tenderness to the distal radius. Tendon function intact. Neurovascular intact. Skin intact. Her x-ray showed displaced fracture left distal radius with comminution both extra-articular and some disruption of the lunate fossa articular surface. There is also angulation with dorsal displacement of the distal fragment, radius. Findings: Closed, comminuted, displaced extra-articular and intra-articular fracture left distal radius which seem to align quite well with ligamentotaxis, traction, direct manipulation of fracture Complications: None - Other Other Information/Narrative: The patient was brought to the operating room and was placed in a supine position with the left arm on a arm extension table. He received a regional block with supplemental sedation. The left upper extremity was prepped and draped in a sterile manner in the usual fashion. The C-arm image intensifier was utilized and covered with a sterile drape. A timeout procedure was performed by the entire operating room team and all were in agreement. Finger traps were applied to all 5 fingers and a traction bow as well. Longitudinal traction was applied, direct manipulation of the fracture site over a sterile bump. The C-arm image intensifier showed good alignment and a percutaneous pinning was performed with 0.062 K wires. The bare area of the radial styloid was engaged and pin was inserted from the styloid across the fracture to achieve bicortical fixation. An additional K wire from the radial styloid was also inserted to provide 2 bicortical K wires from the radial styloid. 2 additional K wires were inserted ; one from the ulnar corner of the distal radius distally and one parallel to the radiocarpal joint Biplanar and oblique imaging was obtained and there was good alignment of the fixation and fracture. The K wires were cut external to skin and covered with sterile balls. A well-padded short arm fiberglass splint was applied with gauze padding around the K wires. The patient tolerated the procedure well. No tourniquet was u tilized.A physician accounts receivable assistant was utilized to help with prepping and draping, application of traction during the procedure, splint application
--- NOTE | 2021-08-28 09:04 | XRAY Report ---
PROCEDURE: OR C-Arm Procedure INDICATIONS: wrist pinning TECHNIQUE: 2 intraoperative fluoroscopic images of left wrist were obtained. COMPARISON: 08/27/2021, 08/20/2021. FINDINGS: Intraoperative fluoroscopic images shows surgical pinning of previously noted comminuted and impacted intra-articular fracture of distal radius with near anatomic wrist alignment. Total fluoroscopy time is 8 seconds. IMPRESSION: Fluoroscopy guidance was provided intraoperatively for surgical pinning of distal radius. Reviewed by: Thomas Garcia MD on 08/28/2021 9:03 AM PDT Approved by: Thomas Garcia MD on 08/28/2021 9:03 AM PDT Station ID: [id number]
[2021-08-28 09:27] VITALS: BP 110/68
--- NOTE | 2021-08-28 10:41 | ANESTHESIA POST OP EVALUATION ---
Anesthesia Post Eval - Post Anesthesia Eval Vitals: Last Vital Signs Temp 36.2 C L 08/28/21 09:10 Pulse 68 08/28/21 09:10 Resp 16 08/28/21 09:10 BP 110/68 08/28/21 09:10 Pulse Ox 99 08/28/21 09:10 CV Function Including HR & BP: Stable Pain Control: Satisfactory Nausea & Vomiting: Negative Mental Status: Baseline Respiratory Status: Airway Patent Hydration Status: Satisfactory Anesthesia Complications: None
== END 2021-08-28 06:28 | disposition home or self-care (01) ==
LOC: SDS 06:27
PROVIDERS: ATTEND Orthopaedic Surgery
DX: S52.572A Other intraarticular fracture of lower end of left radius, initial encounter for closed fracture (principal); S52.552A Other extraarticular fracture of lower end of left radius, initial encounter for closed fracture; W01.0XXA Fall on same level from slipping, tripping and stumbling without subsequent striking against object, initial encounter; Y92.008 Other place in unspecified non-institutional (private) residence as the place of occurrence of the external cause; Z87.891 Personal history of nicotine dependence
CPT/HCPCS: 25606; A9270; J0131; J0690; J7120

== ENCOUNTER 2021-09-17 08:00 | Outpatient (CLI) | payer MEDICARE ==
--- NOTE | 2021-09-17 11:51 | XRAY Report ---
PROCEDURE: Wrist 3 View LT INDICATIONS: WRIST FX TECHNIQUE: 3 views of the wrist were acquired. COMPARISON: 08/27/2021 FINDINGS: Bones: Multiple K wire fixation of distal radial metaphyseal fracture. There is evidence of healing. Ulnar styloid fracture again seen. Improved anatomic alignment. Soft tissues: No suspicious soft tissue calcifications. IMPRESSION: Improved anatomic alignment following K wire fixation for distal radial fracture. Reviewed by: Adonis Chavez MD on 09/17/2021 11:49 AM PDT Approved by: Adonis Chavez MD on 09/17/2021 11:49 AM PDT Station ID: [id number]
== END 2021-09-17 23:59 | disposition home or self-care (01) ==
LOC: DI.WOS 08:00
PROVIDERS: ATTEND Physician Assistant Surgical
DX: S52.612D Displaced fracture of left ulna styloid process, subsequent encounter for closed fracture with routine healing (principal)

== ENCOUNTER 2022-05-07 08:22 | Outpatient (CLI) | payer MEDICARE ==
[2022-05-07 08:39] LABS: BASOPHILS # (AUTO) 0.1 10^3/uL (0.0-0.1); BASOPHILS % (AUTO) 1.2 %; EOSINOPHILS # (AUTO) 0.1 10^3/uL (0.0-0.7); EOSINOPHILS % (AUTO) 2.6 %; HCT - HEMATOCRIT 42.1 % (37.0-47.0); HGB - HEMOGLOBIN 13.7 g/dL (12.0-16.0); LYMPHOCYTES # (AUTO) 1.4 10^3/uL (1.5-3.5); LYMPHOCYTES % (AUTO) 27.8 %; MEAN CORPUSCULAR HEMOGLOBIN 28.1 pg (27.0-31.0); MEAN CORPUSCULAR HGB CONC 32.5 g/dL (32.0-36.0); MEAN CORPUSCULAR VOLUME 86.4 fL (81.0-99.0); MONOCYTES # (AUTO) 0.3 10^3/uL (0.0-1.0); MONOCYTES % (AUTO) 6.2 %; NEUTROPHILS # (AUTO) 3.1 10^3/uL (1.5-6.6); PLT - PLATELET COUNT 223 10^3/uL (130-450); RED BLOOD COUNT 4.87 10^6/uL (4.20-5.40)
[2022-05-07 08:59] LABS: % IRON SATURATION 19 % (20-50); ALBUMIN 4.1 g/dL (3.2-5.5); ALBUMIN/GLOBULIN RATIO 1.4 (1.0-2.2); ALKALINE PHOSPHATASE 90 IU/L (42-121); ALT ALANINE AMINOTRANSFERASE 14 IU/L (10-60); AST ASPARTATE AMINOTRANSFERASE 18 IU/L (10-42); BILIRUBIN,TOTAL 0.8 mg/dL (0.2-1.0); BUN - BLOOD UREA NITROGEN 18 mg/dL (6-20); CALCIUM 9.4 mg/dL (8.5-10.3); CARBON DIOXIDE - CO2 29 mmol/L (21-32); CHLORIDE 101 mmol/L (101-111); CHOL/HDL RATIO 2.7 (<4.4); CHOLESTEROL 244 mg/dL; CREATININE 0.8 mg/dL (0.4-1.0); GFR - MDRD 71 (>89); GLUCOSE 98 mg/dL (70-100); HDL CHOLESTEROL 90 mg/dL; IRON 74 ug/dL (28-170); LDL CHOLESTEROL,CALCULATED 145 mg/dL; LDL/HDL RATIO 1.6 (<4.4); POTASSIUM 4.3 mmol/L (3.5-5.0); SODIUM 137 mmol/L (135-145); TOTAL IRON BINDING CAPACITY 381 ug/dL (250-450); TOTAL PROTEIN 7.1 g/dL (6.7-8.2); TRANSFERRIN 272 mg/dL (192-382); TRIGLYCERIDES 46 mg/dL; VLDL CHOLESTEROL 9 mg/dL
[2022-05-07 09:08] LABS: THYROID STIMULATING HORMONE 1.06 uIU/mL (0.34-5.60)
== END 2022-05-07 08:23 | disposition home or self-care (01) ==
LOC: LAB 08:22
PROVIDERS: ATTEND Physician Assistant
DX: E78.5 Hyperlipidemia, unspecified (principal); R60.9 Edema, unspecified; Z51.81 Encounter for therapeutic drug level monitoring; L65.9 Nonscarring hair loss, unspecified; R68.89 Other general symptoms and signs
CPT/HCPCS: 36415; 80053; 80061; 81599; 82728; 83540; 83721; 84443; 84466; 85025; 86038

== ENCOUNTER 2023-10-05 08:00 | Outpatient (CLI) | payer MEDICARE ==
[2023-10-05 18:18] LABS: BILIRUBIN,URINE NEGATIVE (NEGATIVE); GLUCOSE, URINE (UA) NEGATIVE (NEGATIVE); KETONES,URINE (UA) NEGATIVE (NEGATIVE); LEUKOCYTE ESTERASE, URINE MODERATE (NEGATIVE); NITRITE,URINE NEGATIVE (NEGATIVE); OCCULT BLOOD,URINE TRACE-INTA (NEGATIVE); PROTEIN,URINE NEGATIVE (NEGATIVE); UROBILINOGEN,URINE 0.2 (NORMAL) E.U./dL (NORMAL)
[2023-10-05 18:38] LABS: BACTERIA,URINE Rare /HPF (None Seen); CLARITY,URINE HAZY (CLEAR); RBC,URINE 0-5 /HPF (0-5); SQUAMOUS EPITHELIAL CELL,UR RARE Squamous (<= Few); WBC CLUMPS,URINE PRESENT; WBC,URINE >25 /HPF (0-5)
== END 2023-10-05 23:59 | disposition home or self-care (01) ==
LOC: LAB.N 08:00
PROVIDERS: ATTEND Physician Assistant
DX: R30.0 Dysuria (principal)
CPT/HCPCS: 81001; 87086

== ENCOUNTER 2023-10-20 07:59 | Outpatient (CLI) | payer MEDICARE ==
[2023-10-20 08:19] LABS: BASOPHILS # (AUTO) 0.1 10^3/uL (0.0-0.1); BASOPHILS % (AUTO) 1.2 %; EOSINOPHILS # (AUTO) 0.1 10^3/uL (0.0-0.7); HCT - HEMATOCRIT 41.5 % (37.0-47.0); HGB - HEMOGLOBIN 13.5 g/dL (12.0-16.0); LYMPHOCYTES # (AUTO) 1.6 10^3/uL (1.5-3.5); LYMPHOCYTES % (AUTO) 27.9 %; MEAN CORPUSCULAR HEMOGLOBIN 28.2 pg (27.0-31.0); MEAN CORPUSCULAR HGB CONC 32.5 g/dL (32.0-36.0); MEAN CORPUSCULAR VOLUME 86.6 fL (81.0-99.0); MEAN PLATELET VOLUME 8.5 fL (7.9-10.8); MONOCYTES # (AUTO) 0.4 10^3/uL (0.0-1.0); MONOCYTES % (AUTO) 6.4 %; NEUTROPHILS # (AUTO) 3.5 10^3/uL (1.5-6.6); NEUTROPHILS % (AUTO) 62.3 %; PLT - PLATELET COUNT 210 10^3/uL (130-450); RED BLOOD COUNT 4.79 10^6/uL (4.20-5.40); WHITE BLOOD COUNT 5.6 x10^3/uL (4.8-10.8)
[2023-10-20 08:32] LABS: ALBUMIN 4.1 g/dL (3.2-5.5); ALBUMIN/GLOBULIN RATIO 1.5 (1.0-2.2); ALKALINE PHOSPHATASE 82 IU/L (42-121); ALT ALANINE AMINOTRANSFERASE 9 IU/L (10-60); AST ASPARTATE AMINOTRANSFERASE 13 IU/L (10-42); BILIRUBIN,TOTAL 0.7 mg/dL (0.2-1.0); BUN - BLOOD UREA NITROGEN 9 mg/dL (6-20); CALCIUM 9.3 mg/dL (8.5-10.3); CARBON DIOXIDE - CO2 31 mmol/L (21-32); CHLORIDE 101 mmol/L (101-111); CHOL/HDL RATIO 2.9 (<4.4); CHOLESTEROL 229 mg/dL; CREATININE 0.6 mg/dL (0.6-1.3); GFR - MDRD 98 (>89); GLUCOSE 102 mg/dL (74-104); HDL CHOLESTEROL 79 mg/dL; LDL CHOLESTEROL,CALCULATED 127 mg/dL; LDL/HDL RATIO 1.6 (<4.4); POTASSIUM 4.4 mmol/L (3.5-4.5); SODIUM 136 mmol/L (135-145); TOTAL PROTEIN 6.8 g/dL (6.4-8.9); TRIGLYCERIDES 114 mg/dL; VLDL CHOLESTEROL 23 mg/dL
[2023-10-20 08:46] LABS: THYROID STIMULATING HORMONE 0.92 uIU/mL (0.34-5.60)
[2023-10-20 10:07] LABS: ESTIMATED AVERAGE GLUCOSE 108 mg/dL (70-100); HEMOGLOBIN A1c% 5.4 % (4.27-6.07)
== END 2023-10-20 08:00 | disposition home or self-care (01) ==
LOC: LAB 07:59
PROVIDERS: ATTEND Physician Assistant
DX: E78.5 Hyperlipidemia, unspecified (principal); R73.01 Impaired fasting glucose; E55.9 Vitamin D deficiency, unspecified
CPT/HCPCS: 36415; 80053; 80061; 82306; 82607; 83036; 83721; 84443; 85025

== ENCOUNTER 2023-10-20 08:01 | Outpatient (CLI) | payer MEDICARE ==
--- NOTE | 2023-10-21 15:35 | Mammography Report ---
BILATERAL DIGITAL SCREENING MAMMOGRAM 3D/2D WITH EXAGGERATED CC: 10/20/2023 CLINICAL: Routine screening. Comparison is made to exams dated: 12/25/2020 mammogram, 07/20/2018 mammogram, 07/20/2018 mammogram, mammogram, 07/29/2016 mammogram, and 08/13/2014 mammogram - [facility]. Both breasts are heterogeneously dense, which may obscure small masses (category c / 51-75% glandular tissue). No significant masses, calcifications, or other findings are seen in either breast. There has been no significant interval change. IMPRESSION: NEGATIVE There is no mammographic evidence of malignancy. A 1 year screening mammogram is recommended. Based on the Tyrer Cuzick model (a risk assessment model) the patient's lifetime risk is 4.5% and her 10 year risk is 4.1%. According to the ACR, ACS, and NCCN guidelines, an annual breast MRI exam judy g with mammogram is recommended if the patient's lifetime risk is 20% or greater. This exam was interpreted at Station ID: [id number]. NOTE: For mammograms, a report in lay terms will be sent to the patient. Approximately 15% of breast malignancies will not be visualized mammographically. In the management of a palpable breast mass, a negative mammogram must not discourage biopsy of a clinically suspicious lesion. Electronically Signed By: Jenn falk/luiza:10/20/2023 16:52:12 letter sent: No_Letter ACR BI-RADS Category 1: Negative 3341F PARENCHYMAL PATTERN: (D) - The breast(s) demonstrate(s) heterogeneously dense fibroglandular parmaritay prakash. BI-RADS CATEGORY: (1) - 1 RECOMMENDATION: (ANNUAL) - Recommend routine annual screening mammography. [id number] 1 year screening LATERALITY: (B)
== END 2023-10-20 08:02 | disposition home or self-care (01) ==
LOC: DI 08:01
DX: Z12.31 Encounter for screening mammogram for malignant neoplasm of breast (principal); R92.333 Mammographic heterogeneous density, bilateral breasts